=== PATIENT | female | born 1990 | race Caucasian/White ===

== ENCOUNTER 2016-10-28 23:29 | Emergency (ER) | payer BC, OTHER ==
[2016-10-28 23:36] VITALS: BP 138/47
[2016-10-29 00:49] LABS: Hematocrit 32 % (35-47); Hemoglobin 11.1 g/dl (12.0-16.0); Mean Corpuscular HGB Conc 34 g/dl (31-36); Mean Corpuscular Hemoglobin 27 pg (27-31); Mean Corpuscular Volume 80 fL (80-97); Mean Platelet Volume 8 um3 (7.4-10.4); Red Blood Count 4.06 10^6/ul (4.0-5.4); Red Cell Distribution Width 15 % (10.5-15); White Blood Count 10.1 10^3/ul (3.5-10.8)
[2016-10-29 00:58] LABS: Urine Bilirubin Negative (Negative); Urine Glucose Negative (Negative); Urine Nitrite Negative (Negative)
[2016-10-29 01:18] LABS: Albumin 3.7 g/dL (3.2-5.2); BUN/Creatinine Ratio 10.1 (8-20); Calcium 9.6 mg/dL (8.6-10.3); EGFR African American 134.4 (>60); EGFR Non-African American 104.5 (>60); Globulin 3.8 g/dL (2-4); Potassium 3.8 mmol/L (3.5-5.0); Total Bilirubin 0.2 mg/dL (0.2-1.0); Total Protein 7.5 g/dL (6.4-8.9)
--- NOTE | 2016-10-29 01:42 | ED ---
Laron Payne Matthew, scribed for Tommy Glynn on 10/29/16 at 0112 . Dizziness - HPI Summary HPI Summary: A 26 y/o 17 week female presents to the ED for dizziness since 22:00. Associated lightheadedness, weakness, and diaphoresis. She had a Hx of dizziness from hypertension. Denies vaginal bleeding, and abdominal pain. The patient states that she currently feels well. - History Of Current Complaint Chief Complaint: EDGeneral Stated Complaint: LOW BP/17 WKS PREG Time Seen by Provider: 10/29/16 00:02 Hx Obtained From: Patient Onset/Duration: Resolved Severity Initially: Moderate Severity Currently: Mild Character: Lightheaded, Dizzy Associated Signs And Symptoms: Positive: Diaphoresis, Other: - general weakness - Allergies/Home Medications Allergies/Adverse Reactions: Allergies Allergy/AdvReac Type Severity Reaction Status Date / Time No Known Allergies Allergy Verified 10/29/16 00:18 PMH/Surg Hx/FS Hx/Imm Hx Previously Healthy: Yes Endocrine/Hematology History: Denies: Hx Diabetes - Immunization History Date of Tetanus Vaccine: utd Date of Influenza Vaccine: none Infectious Disease History: No Infectious Disease History: Denies: Traveled Outside the [place] in Last 30 Days - Family History Known Family History: Positive: Cardiac Disease, Diabetes - Social History Alcohol Use: None Substance Use Type: Reports: None Smoking Status (MU): Light Every Day Tobacco Smoker Review of Systems Positive: Skin Diaphoresis Eyes: Negative ENT: Negative Cardiovascular: Negative Respiratory: Negative Gastrointestinal: Negative Negative: Abdominal Pain Genitourinary: Negative Musculoskeletal: Negative Skin: Negative Neurological: Other - Dizziness; lightheadedness Positive: Weakness - general Psychological: Normal All Other Systems Reviewed And Are Negative: Yes Physical Exam Triage Information Reviewed: Yes Vital Signs On Initial Exam: Initial Vitals Temp Pulse Resp BP Pulse Ox 97.3 F 56 16 138/47 98 10/28/16 23:33 10/28/16 23:33 10/28/16 23:33 10/28/16 23:33 10/28/16 23:33 Vital Signs Reviewed: Yes Appearance: Positive: Well-Appearing, No Pain Distress Skin: Positive: Warm, Skin Color Reflects Adequate Perfusion, Dry Head/Face: Positive: Normal Head/Face Inspection Eyes: Positive: EOMI, SARAH ENT: Positive: Normal ENT inspection Neck: Positive: Supple, Nontender Respiratory/Lung Sounds: Positive: Clear to Auscultation, Breath Sounds Present Cardiovascular: Positive: RRR, Pulses are Symmetrical in both Upper and Lower Extremities Abdomen Description: Positive: Nontender, Soft, Distended - mildly Musculoskeletal: Positive: Normal, Strength/ROM Intact Neurological: Positive: Normal, Sensory/Motor Intact, Alert, Oriented to Person Place, Time Psychiatric: Positive: Affect/Mood Appropriate Diagnostics - Vital Signs Vital Signs Temp Pulse Resp BP Pulse Ox 10/28/16 23:33 97.3 F 56 16 138/47 98 - Laboratory Result Diagrams: 10/29/16 00:35 10/29/16 00:35 Lab Statement: Any lab studies that have been ordered have been reviewed, and results considered in the medical decision making process. - Ultrasound No standard instances Ultrasound Interpretation: No Acute Changes - Single live intrauterine Gestational age 17 weeks 5 days heart rate 127 bpm Breech presentation Anterior placenta without previa Probable contraction anterior to placenta Ultrasound Interpretation Completed By: Radiologist Dizzy Course/Dx - Course Assessment/Plan: A 26 y/o 17 week female presents to the ED for dizziness since 22:00. Associated lightheadedness, weakness, and diaphoresis. Denies vaginal bleeding, and abdominal pain. The patient states that she currently feels well. US was negative for acute changes. The patient did well in the ED and will be discharged home with PCP follow-up. - Diagnoses Provider Diagnoses: Intrauterine , Weakness Discharge - Discharge Plan Condition: Stable Disposition: HOME Patient Education Materials: (ED) Forms: *Work Release Referrals: Umesh GRANADOSPTaylor [Primary Care Provider] - 3 Days Additional Instructions: Please follow-up with your primary care physician. The documentation as recorded by the Laron jimenez Matthew accurately reflects the service I personally performed and the decisions made by , Tommy Glynn.
--- NOTE | 2016-10-29 08:20 | RAD ---
Indication: , hypotension and abdominal pain. COMPARISON: There are no prior studies available for comparison. TECHNIQUE: Multiple real-time transabdominal images of the pelvis were obtained. FINDINGS: This exam demonstrates a single intrauterine in the breech presentation. cardiac activity and limb motion are noted. The heart rate was 127 beats per minute. The placenta was located anterior. There is no placenta previa. There appear to be a contraction anterior to the placenta during the study. The amniotic fluid volume appeared to be within normal limits. The cervix measured 3.6 cm in length. Biparietal diameter (cm): 3.84 17 weeks 5 days Head circumference (cm): 14.66 17 weeks 6 days Abdominal circumference (cm): 11.83 17 weeks 4 days Femur length (cm): 2.49 17 weeks 4 days The composite estimated gestational age was 17 weeks 5 days. The estimated date of delivery is April 03, 2017. The estimated weight at this time is 201 grams plus or minus 30 grams. The anatomy was not examined on this limited emergent study. IMPRESSION: THERE IS A SINGLE INTRAUTERINE IN THE BREECH PRESENTATION WITH A COMPOSITE ESTIMATED GESTATIONAL AGE OF 17 WEEKS 5 DAYS.
== END 2016-10-29 01:36 | disposition home or self-care (01) ==
LOC: ED 23:29
DX: R42 Dizziness and giddiness (principal); Z34.92 Encounter for supervision of normal pregnancy, unspecified, second trimester; R53.1 Weakness; F17.210 Nicotine dependence, cigarettes, uncomplicated
CPT/HCPCS: 36415; 76815; 80053; 81003; 84702; 85025; 86850; 86900; 86901; 99282

== ENCOUNTER 2019-05-24 20:07 | Emergency (ER) | payer BC, OTHER ==
[2019-05-24 20:30] VITALS: BP 123/78
[2019-05-24] MEDS ORDERED: Ketorolac *IM* INJ* 60 MG/2 ML VIAL IM ONE (20:53)
--- NOTE | 2019-05-24 21:00 | ED ---
Back Pain - HPI Summary HPI Summary: 28 yo WF c/o midback spasm radating to lower back x 2 weeks. tried hot and cold compresses, ibuprofen, flexeril but nothing's working, denies injuries - History of Current Complaint Chief Complaint: UCBackPain Stated Complaint: BACK PAIN Time Seen by Provider: 05/24/19 20:17 Hx Obtained From: Patient Hx Last Menstrual Period: 1 month ago Onset/Duration: Sudden Onset Onset/Duration: Started Weeks Ago - 2 Timing: Constant, Lasting Weeks Back Pain Location: Radiates To - lower back Severity Initially: Moderate Severity Currently: Severe Pain Intensity: 8 - Allergies/Home Medications Allergies/Adverse Reactions: Allergies Allergy/AdvReac Type Severity Reaction Status Date / Time No Known Allergies Allergy Verified 05/24/19 20:29 Home Medications: Home Medications Citalopram TAB* [Celexa TAB*] 1 tab PO DAILY 05/24/19 [History Confirmed ] PMH/Surg Hx/FS Hx/Imm Hx Previously Healthy: Yes Endocrine/Hematology History: Denies: Hx Diabetes - Surgical History Surgery Procedure, Year, and Place: c sections x2, dental extraction - Immunization History Date of Tetanus Vaccine: utd Date of Influenza Vaccine: none Infectious Disease History: No Infectious Disease History: Denies: Traveled Outside the [place] in Last 30 Days - Family History Known Family History: Positive: Cardiac Disease, Diabetes, Non-Contributory - Social History Alcohol Use: None Substance Use Type: Reports: None Smoking Status (MU): Current Some Day Smoker Type: Cigarettes Amount Used/How Often: <1/2 ppd Review of Systems Constitutional: Negative Eyes: Negative ENT: Negative Cardiovascular: Negative Respiratory: Negative Gastrointestinal: Negative Positive: Other - SEE HPI Skin: Negative All Other Systems Reviewed And Are Negative: No Physical Exam - Summary Physical Exam Summary: Vital Signs Reviewed: Yes Eye Exam: Normal Eyes: Positive: Conjunctiva Clear ENT: Positive: Normal ENT inspection Neck: Positive: Supple Respiratory Exam: Normal Respiratory: Positive: Lungs clear Cardiovascular Exam: Normal Cardiovascular: Positive: RRR, S1 S2 Abdomen: NT/ND Musculoskeletal Exam: Mid to low back paraspinal muscle tenderness, no vertebral tenderness Neurological Exam: Normal Psychological Exam: Normal Skin Exam: Normal Vital Signs On Initial Exam: Initial Vitals Temp Pulse Resp BP Pulse Ox 36.8 C 83 18 123/78 99 05/24/19 20:20 05/24/19 20:20 05/24/19 20:20 05/24/19 20:20 05/24/19 20:20 Diagnostics - Vital Signs Vital Signs Temp Pulse Resp BP Pulse Ox 05/24/19 20:20 36.8 C 83 18 123/78 99 - Laboratory Lab Statement: Any lab studies that have been ordered have been reviewed, and results considered in the medical decision making process. Back Pain Course/Dx - Diagnoses Provider Diagnoses: Spasm of back muscles Discharge ED - Sign-Out/Discharge Documenting (check all that apply): Patient Departure All imaging exams completed and their final reports reviewed: No Studies - Discharge Plan Condition: Stable Disposition: HOME Prescriptions: Naproxen [Naproxen 500 mg tab] 500 mg PO BID 10 Days #20 tablet Tizanidine HCl [Zanaflex] 4 mg PO BEDTIME PRN 5 Days #5 capsule PRN Reason: Pain - Severe Patient Education Materials: Muscle Spasm (ED) Referrals: Araceli Oscar [Primary Care Provider] - - Billing Disposition and Condition Condition: STABLE Disposition: Home
== END 2019-05-24 21:15 | disposition home or self-care (01) ==
LOC: UCEAST 20:07
DX: M62.838 Other muscle spasm (principal); F17.210 Nicotine dependence, cigarettes, uncomplicated
CPT/HCPCS: 96372; 99212; G0463; J1885

== ENCOUNTER 2019-07-13 23:16 | Day surgery (SDC) | payer OTHER ==
[2019-07-13] MEDS ORDERED: Ondansetron INJ* 2 MG/ML VIAL IV ONE (23:37)
[2019-07-13] MEDS ORDERED: Morphine 4 MG/ML VIAL (1 ml) 4 MG/ML VIAL IV ONE (23:37)
[2019-07-13] MEDS ORDERED: Ketorolac INJ* 30 MG/ML 1 ML VIAL IV PUSH ONE (23:37)
--- NOTE | 2019-07-13 23:40 | ED ---
Abdominal Pain/Female - HPI Summary HPI Summary: Pt is a 29 y/o F presenting to the ED with a chief complaint of abdominal pain initially onset at 1900 currently rated at 6-7/10. She states she ate dinner, fell asleep, then woke up with abruptly onset RUQ pain described as sharp and throbbing. It is intermittent in severity, and accompanied by nausea but no vomiting. She denies LE edema or myalgia. - History of Current Complaint Chief Complaint: EDNauseaVomitDiarrh Stated Complaint: ABD PAIN PER PT Time Seen by Provider: 07/13/19 23:33 Hx Obtained From: Patient Hx Last Menstrual Period: 1 month ago Onset/Duration: Sudden Onset, Lasting Hours, Still Present Timing: Hours Severity Initially: Moderate Severity Currently: Severe Pain Intensity: 7 Pain Scale Used: 0-10 Numeric Location: Discrete At: RUQ Radiates: No Aggravating Factor(s): Nothing Alleviating Factor(s): Nothing Associated Signs and Symptoms: Positive: Nausea. Negative: Vomiting Allergies/Adverse Reactions: Allergies Allergy/AdvReac Type Severity Reaction Status Date / Time No Known Allergies Allergy Verified 07/13/19 23:21 PMH/Surg Hx/FS Hx/Imm Hx Previously Healthy: Yes Endocrine/Hematology History: Denies: Hx Diabetes Cardiovascular History: Denies: Hx Hypertension - Surgical History Surgery Procedure, Year, and Place: c sections x2, dental extraction - Immunization History Date of Tetanus Vaccine: utd Date of Influenza Vaccine: none Infectious Disease History: No Infectious Disease History: Denies: Traveled Outside the [place] in Last 30 Days - Family History Known Family History: Positive: Cardiac Disease, Diabetes - Social History Alcohol Use: None Hx Substance Use: No Substance Use Type: Reports: None Hx Tobacco Use: Yes Smoking Status (MU): Current Some Day Smoker Type: Cigarettes Amount Used/How Often: <1/2 ppd Review of Systems Positive: Abdominal Pain, Nausea. Negative: Vomiting Negative: Myalgia - LE, Edema - LE All Other Systems Reviewed And Are Negative: Yes Physical Exam - Summary Physical Exam Summary: Appearance: Well-appearing, Well-nourished, lying in bed comfortably Skin: Warm, dry, no obvious rash Eyes: sclera anicteric, no conjunctival pallor ENT: mucous membranes moist, pharynx appears normal Neck: Supple, nontender Respiratory: Clear to auscultation, no signs of respiratory distress Cardiovascular: Normal S1, S2. No murmurs. Normal distal pulses in tibial and radial bilaterally. Abdomen: Soft, RUQ tenderness without guarding or rebound, normal active bowel sounds present Musculoskeletal: Normal, Strength/ROM Intact Neurological: A&Ox3, awake and alert, mentation is normal, speech is fluent and appropriate Psychiatric: affect is normal, does not appear anxious or depressed Triage Information Reviewed: Yes Vital Signs On Initial Exam: Initial Vitals Temp Pulse Resp BP Pulse Ox 97.4 F 65 16 137/80 99 07/13/19 23:18 07/13/19 23:18 07/13/19 23:18 07/13/19 23:18 07/13/19 23:18 Vital Signs Reviewed: Yes Procedures - Sedation Patient Received Moderate/Deep Sedation with Procedure: No Diagnostics - Vital Signs Vital Signs Temp Pulse Resp BP Pulse Ox 07/13/19 23:18 97.4 F 65 16 137/80 99 - Laboratory Result Diagrams: 07/13/19 23:54 07/13/19 23:54 Lab Statement: Any lab studies that have been ordered have been reviewed, and results considered in the medical decision making process. - Radiology CXR Radiology Interpretation Completed By: ED Physician Summary of Radiographic Findings: No acute process. Pending official radiology report. - Ultrasound Gallbladder US Ultrasound Interpretation Completed By: Radiologist Summary of Ultrasound Findings: Mildly distended gallbladder. Biliary sludge. Mild gallbladder wall thickening. Correlate clinically for evidence of acute cholecystitis. Steatosis. ED physician has reviewed this report. Re-Evaluation - Re-Evaluation 1st re-eval Re-Evaluation Time: 06:38 Change: Unchanged Comment: Pt still having pain. Abdominal Pain Fem Course/Dx - Course Course Of Treatment: Pt is a 29 y/o F presenting to the ED with a chief complaint of abdominal pain initially onset at 1900 currently rated at 6-7/10. She states she ate dinner, fell asleep, then woke up with abruptly onset RUQ pain described as sharp and throbbing. It is intermittent in severity, and accompanied by nausea but no vomiting. She denies LE edema or myalgia. Pt's physical exam reveals RUQ tenderness without guarding or rebound. Gallbladder US shows: Mildly distended gallbladder. Biliary sludge. Mild gallbladder wall thickening. Correlate clinically for evidence of acute cholecystitis. Steatosis. 0124 - I spoke with Dr. Diaz about the pt's US report who recommended trying to get the pt's pain down, and if it cannot be alleviated, then he will see her in the morning. CXR shows no acute process. Pending official radiology report. Pt still having pain as of 0638. I spoke with Dr. Diaz again at 0640 about the pt who will be coming in to evaluate the pt. Pt' s dx is cholecystitis. She will be signed out to Dr. Borja at 0700 on 07/14/19. - Diagnoses Provider Diagnoses: Cholecystitis Discharge ED - Sign-Out/Discharge Documenting (check all that apply): Sign-Out Patient Signing out patient TO: Arnol Borja - Discharge Plan Condition: Stable Disposition: ADMITTED TO [facility] - Billing Disposition and Condition Condition: STABLE Disposition: Admitted to [facility] - Attestation Statements Document Initiated by Kinzaibe: Yes Documenting Scribe: Allie Barber Provider For Whom Nasim is Documenting (Include Credential): Reed Guan MD. Scribe Attestation: I, Allie Barber, scribed for Reed Guan MD. on 07/14/19 at 1918. Scribe Documentation Reviewed: Yes Provider Attestation: The documentation as recorded by the Allie jimenez accurately reflects the service I personally performed and the decisions made by me, Reed Guan MD. Status of Scribe Document: Viewed Consult Consult: 0124 - I spoke with Dr. Diaz about the pt's US report who recommended trying to get the pt's pain down, and if it cannot be alleviated, then he will see her in the morning.
[2019-07-14 00:16] LABS: ALT 16 U/L (7-52); AST 15 U/L (13-39); Albumin 3.9 g/dL (3.2-5.2); Albumin/Globulin Ratio 1.1 (1-3); Alkaline Phosphatase 57 U/L (34-104); Anion Gap 6 mmol/L (2-11); BUN/Creatinine Ratio 10.5 (8-20); Blood Urea Nitrogen 8 mg/dL (6-24); CO2 Carbon Dioxide 23 mmol/L (22-32); Chloride 108 mmol/L (101-111); EGFR African American 110.5 (>60); EGFR Non-African American 91.3 (>60); Globulin 3.4 g/dL (2-4); Glucose 102 mg/dL (70-100); Potassium 3.7 mmol/L (3.5-5.0); Sodium 137 mmol/L (135-145); Total Protein 7.3 g/dL (6.4-8.9)
[2019-07-14 00:21] LABS: ABS Basophils 0.1 10^3/ul (0-0.2); ABS Eosinophils 0.4 10^3/ul (0-0.6); ABS Lymphocytes 2.7 10^3/ul (1.0-4.8); ABS Monocytes 0.8 10^3/ul (0-0.8); ABS Neutrophils 5.3 10^3/ul (1.5-7.7); Eosinophil % 4.2 %; Hematocrit 30 % (35-47); Hemoglobin 9.8 g/dL (12.0-16.0); Lymphocyte % 28.7 %; Mean Corpuscular HGB Conc 32 g/dL (31-36); Mean Corpuscular Hemoglobin 24 pg (27-31); Mean Corpuscular Volume 73 fL (80-97); Mean Platelet Volume 7.4 fL (7.4-10.4); Nucleated Red Blood Cells % 0.1; Platelet Count 403 10^3/uL (150-450); Red Blood Count 4.13 10^6 /uL (3.70-4.87); Red Cell Distribution Width 16 % (10-15); White Blood Count 9.3 10^3/uL (3.5-10.8)
[2019-07-14 00:22] LABS: HCG Pregnancy < 0.60 mIU/mL
[2019-07-14] MEDS ORDERED: Morphine 4 MG/ML VIAL (1 ml) 4 MG/ML VIAL IV ONE (01:23)
[2019-07-14] MEDS ORDERED: Piperacillin/Tazobac ADVAN(*) 3.375 GM in NS 0.9% 100 ML* 100 ML IVPB ONE (01:53)
[2019-07-14] MEDS: NS 0.9% 1000 ML** 2,000 ML IV ONE ×2 (02:01→03:33)
[2019-07-14 02:22] LABS: Urine Appearance Clear; Urine Bilirubin Negative (Negative); Urine Blood Negative (Negative); Urine Color Yellow; Urine Glucose Negative (Negative); Urine Ketones Negative (Negative); Urine Nitrite Negative (Negative); Urine Protein Negative (Negative); Urine Specific Gravity 1.013 (1.010-1.030); Urine Urobilinogen Negative (Negative)
[2019-07-14 02:27] LABS: Urine Bacteria Absent (Absent); Urine Red Blood Cell Trace(0-2/hpf) (Absent); Urine Squamous Epithelial Cell Present (Absent); Urine White Blood Cell Trace(0-5/hpf) (Absent)
[2019-07-14] MEDS: Morphine 4 MG/ML VIAL (1 ml) 4 MG/ML VIAL IV PRN ×2 (03:33→06:42)
--- NOTE | 2019-07-14 07:22 | ED ---
Progress - Progress Note Progress Note: The patient is a sign-out from Dr. Reed Guan MD, to Dr. Arnol Borja MD, at change of shift at 0700 on 07/14/19, pending consultation and evaluation with Dr. Diaz, surgery, and disposition. 0825 - Dr. Diaz has evaluated the patient and states that she will be admitted for surgery Re-Evaluation - Re-Evaluation 1st re-eval Re-Evaluation Time: 06:38 Change: Unchanged Comment: Pt still having pain. Course/Dx - Course Course Of Treatment: The patient is a sign-out from Dr. Reed Guan MD, to Dr. Arnol Borja MD, at change of shift at 0700 on 07/14/19, pending consultation and evaluation with Dr. Diaz, surgery, and disposition. Dr. Diaz belives that surgery will be most beneficial to the patient, so she will be admitted for surgery today. The patient understands and agrees with this plan. - Diagnoses Provider Diagnoses: Cholecystitis - Provider Notifications Discussed Care Of Patient With: Titi Diaz - surgery Time Discussed With Above Provider: 08:25 Instructed by Provider To: Admit As Inpatient - Dr. Diaz has evaluated the patient and has determined that she would benefit from surgery today, so she will be admitted. Discharge ED - Sign-Out/Discharge Documenting (check all that apply): Patient Departure - Patient admitted to surgery by Dr. Diaz., Receiving Sign-Out Receiving patient FROM: Reed Guan - Patient is a sign-out from Dr. Reed Guan MD, at change of shift at 0700 on 07/14/19, pending surgical consultation and disposition. - Discharge Plan Condition: Stable Disposition: ADMITTED TO [facility] - Billing Disposition and Condition Condition: STABLE Disposition: Admitted to [facility] - Attestation Statements Document Initiated by Scribe: Yes Documenting Scribe: Caitlin Kaplan Provider For Whom Nasim is Documenting (Include Credential): Dr. Arnol Borja MD Scribe Attestation: Caitlin Payne scribed for Dr. Arnol Borja MD on 07/14/19 at 0955. Scribe Documentation Reviewed: Yes Provider Attestation: The documentation as recorded by the Caitlin jimenez accurately reflects the service I personally performed and the decisions made by , Dr. Arnol Borja MD Status of Scribe Document: Viewed Procedures - Sedation Patient Received Moderate/Deep Sedation with Procedure: No
[2019-07-14] MEDS ORDERED: Lactated Ringers 1000 ML Bag* 1,000 ML IV SCH ×2 (09:00→11:00)
--- NOTE | 2019-07-14 09:10 | HP ---
HISTORY AND PHYSICAL: DATE OF CONSULTATION: 07/14/19 CHIEF COMPLAINT: Abdominal pain. HISTORY OF PRESENT ILLNESS: This pleasant 29-year-old female had sudden onset of severe epigastric and right upper quadrant pain last night sometime after dinner. Pain persisted, nothing made it better. She came to the emergency room. No fevers or chills. No jaundice, acholic stools or dark urine. Workup there included ultrasound, which showed sludge and a mildly thickened gallbladder. Laboratory studies showed a normal white blood cell count. Normal LFTs. Her pain persisted throughout the night. Pain relieved with narcotics temporarily. She was given IV antibiotics. PAST MEDICAL HISTORY: Depression. Denies history of cardiac, liver, kidney or lung disease. PAST SURGICAL HISTORY: section x2 and tubal ligation with last section. MEDICATIONS: Citalopram. ALLERGIES: No known drug allergies. FAMILY HISTORY: Denies history of colorectal or breast cancer. SOCIAL HISTORY: She is a smoker. REVIEW OF SYSTEMS: General: Denies weight loss or change of appetite. HEENT: No changes in vision, hearing or swallowing. No sore throat. Cardiac: No chest pain. Pulmonary: No cough. GI: No blood per rectum. : No hematuria. Skin: Denies rash. Neuro: No headache or dizziness. Musculoskeletal: No extremity weakness. Psych: No anxiety or depression. PHYSICAL EXAMINATION GENERAL: Pleasant female complaining of abdominal pain. HEENT: Her sclerae are anicteric. Oral mucosa is pink and moist. NECK: Supple. No JVD. No masses. LUNGS: Clear. HEART: Regular. ABDOMEN: Obese, soft, nondistended, tender in the epigastric and right upper quadrant. No masses or organomegaly. EXTREMITIES: No clubbing, cyanosis or edema. NEURO: Grossly intact. No focal motor or sensory deficits. BACK: No vertebral or CVA tenderness. SKIN: No rash, petechiae or jaundice. IMPRESSION: Cholecystitis. PLAN/RECOMMENDATIONS: We discussed surgery, risks including but not limited to bleeding, infection, injury to intraabdominal contents including the bowel, the bile duct, liver, cystic duct leak, no relief of symptoms. I told her that surgery would likely be with Dr. Deysi Atwood from [facility], who will meet her prior to surgery as well. She seemed to understand and has agreed to surgery, wishes to proceed, and all questions were answered. [id number]/[facility] #: [id number] MTDD
[2019-07-14] MEDS ORDERED: Cisatracurium* 2 MG/ML MDV 5 ML ONE (10:14)
[2019-07-14] MEDS ORDERED: Ondansetron INJ* 2 MG/ML VIAL ONE (10:14)
[2019-07-14] MEDS ORDERED: KETAMINE HCL* 50 MG/ML 10 ML VIAL ONE (10:14)
[2019-07-14] MEDS ORDERED: Propofol* 10 MG/ML 20 ML BTL ONE (10:14)
[2019-07-14] MEDS ORDERED: fentaNYL* 50 MCG/ML 2 ML VIAL (100 MCG VIAL) ONE ×2 (10:14→12:47)
[2019-07-14] MEDS ORDERED: Ketorolac INJ* 30 MG/ML 1 ML VIAL ONE (10:14)
[2019-07-14] MEDS ORDERED: Lidocaine 2% PF * 5 ML VIAL ONE (10:14)
[2019-07-14] MEDS ORDERED: Dexamethasone IV* 4 MG/ML 1 ML (4 MG) ONE (10:14)
[2019-07-14] MEDS ORDERED: Midazolam* 1 MG/ML 5 ML VIAL (5 MG) ONE (10:14)
[2019-07-14] MEDS ORDERED: Famotidine IV* 10 MG/ML 2 ML (20 mg) ONE (10:52)
[2019-07-14] MEDS ORDERED: Buffered Lidocaine 1% SYRIN* 1 ML/SYRINGE INTRADERM ONE (10:53)
[2019-07-14] MEDS ORDERED: Famotidine IV* 10 MG/ML 2 ML (20 mg) IV ONE (10:53)
[2019-07-14] MEDS ORDERED: ceFAZolin 2 GM in NS PREMIX(*) 2 GM/100 ML BAG IVPB ONE (10:56)
[2019-07-14] MEDS ORDERED: Bupivacaine 0.25% SDV* 30 ML ONE (11:16)
[2019-07-14] MEDS ORDERED: EPHEDrine (Pressors)* 50 MG/ML VIAL ONE (11:22)
[2019-07-14] MEDS ORDERED: fentaNYL* 50 MCG/ML 2 ML VIAL (100 MCG VIAL) IV PRN (12:37)
[2019-07-14] MEDS ORDERED: Ondansetron INJ* 2 MG/ML VIAL IV PRN (12:37)
[2019-07-14] MEDS ORDERED: Naloxone* 0.4 MG/ML 1 ML VIAL IV PRN (12:37)
[2019-07-14] MEDS ORDERED: Levalbuterol 0.63MG/3ML NEB* UNIT OF USE INH PRN (13:53)
[2019-07-14] MEDS ORDERED: Levalbuterol 0.63MG/3ML NEB* UNIT OF USE INH ONE (13:58)
[2019-07-14 15:34] VITALS: BP 123/68
--- NOTE | 2019-07-15 12:43 | OP ---
DATE OF OPERATION: 07/14/19 - SDS DATE OF : 89 SURGEON: Deysi Atwood MD ASSISTANTS: Dhruv Dennison MD and FRANCISCA Campuzano ANESTHESIA: General. PRE-OP DIAGNOSIS: Acute cholecystitis. POST-OP DIAGNOSIS: Acute cholecystitis. PROCEDURE: Laparoscopic cholecystectomy. ESTIMATED BLOOD LOSS: Minimal. FINDINGS: Inflamed gallbladder. INDICATION: Erin Narayanan is a 29-year-old otherwise healthy woman who presented to the ED with approximately 12 hours of abdominal pain. Her white count was normal, but ultrasound showed a mildly thickened gallbladder wall and sludge. I discussed surgery with her including but not limited to the risk of bleeding, infection, bowel injury, or bile duct injury. She is agreed to proceed with laparoscopic cholecystectomy. DESCRIPTION OF PROCEDURE: The patient was brought to the OR and placed in the supine position on the OR table. She received 2 g of cefazolin. SCDs were placed. General anesthesia was administered. The abdomen was prepped amd draped in the usual sterile fashion. A time-out confirming the patient's name, date of , and the procedure was called. A supraumbilical curvilinear incision was made. The incision was taken down to the fascia with blunt and sharp dissection. The fascia was elevated and incised sharply. The peritoneum was entered with blunt dissection. A 12 mm trocar was placed into the abdomen. Pneumoperitoneum to 15 mmHg was achieved. A 5 mm trocar was placed in the epigastrium at the midline, another 5 mm trocar was placed in the right upper quadrant, and a third 5 mm trocar was placed also in the right upper quadrant at the midclavicular line, all under direct visualization. The gallbladder was elevated. The gallbladder was very distended. A large gallstone was lodged in the neck of the gallbladder. While elevating the gallbladder, the wall did tear with leakage of clear bile tinged fluid. Once the gallbladder was elevated, the peritoneum overlying the gallbladder was taken down using electrocautery and blunt dissection. The cystic duct could be seen coming from the neck of the gallbladder. The peritoneum over the duct and artery was bluntly dissected away from the cystic duct and the cystic artery. The peritoneum attaching gallbladder to liver was taken down in order to obtain the critical view. The cystic duct was then clipped with 2 clips proximal and one clip distal, then divided sharply with scissors. The cystic artery was also divided after placing 2 clips distal and one clip proximal. The gallbladder was then taken off the liver bed with electrocautery. There was a significant amount of inflammation around the gallbladder with a thick gallbladder wall. The gallbladder was placed in a specimen bag and removed from the abdomen. Upon inspection of the liver, it looked like there was a small portion of the gallbladder wall still attached to liver. The small piece was amputated from the liver with electrocautery then removed from the abdomen. The gallbladder fossa was examined and hemostasis was achieved with electrocautery. The clips were examined and were in good position. The bile that had spilled was suctioned out and area was irrigated. The trocars were removed under visualization. Umbilical incision was closed with 0 Vicryl to reapproximate the fascia. The skin was closed with a running 4 -0 Monocryl. The 5 mm trocar sites were closed with interrupted 4-0 Monocryl sutures. The incisions were injected with 0.5% Marcaine. Steri-Strips were placed over the incision. Needle and sponge counts were correct. The patient was extubated and brought to recovery in stable condition. [id number]/[facility] #: [id number] ISHAN
== END 2019-07-14 08:38 | disposition home or self-care (01) ==
LOC: ED 23:16 → SDS 07-14 08:38
PROVIDERS: ATTEND Surgery
DX: K80.00 Calculus of gallbladder with acute cholecystitis without obstruction (principal); R10.11 Right upper quadrant pain; F17.210 Nicotine dependence, cigarettes, uncomplicated
CPT/HCPCS: 36415; 71046; 76705; 80053; 81003; 81015; 83690; 84702; 85025; 87086; 88304; 96374; 96375; 96376; 99284; J0690; J1100; J1885; J2250; J2270; J2405; J2543; J2704; J3010; J3490

== ENCOUNTER 2019-07-16 23:05 | Emergency (ER) | payer OTHER ==
[2019-07-16] MEDS ORDERED: NS 0.9% 1000 ML** 1,000 ML IV ONE (23:45)
[2019-07-16] MEDS ORDERED: Ketorolac INJ* 30 MG/ML 1 ML VIAL IV PUSH ONE (23:45)
[2019-07-17 00:14] LABS: ABS Basophils 0.1 10^3/ul (0-0.2); ABS Eosinophils 0.3 10^3/ul (0-0.6); ABS Lymphocytes 2.7 10^3/ul (1.0-4.8); ABS Monocytes 0.6 10^3/ul (0-0.8); ABS Neutrophils 5.5 10^3/ul (1.5-7.7); Eosinophil % 3.1 %; Hematocrit 31 % (35-47); Lymphocyte % 29.2 %; Mean Corpuscular HGB Conc 33 g/dL (31-36); Mean Corpuscular Hemoglobin 24 pg (27-31); Mean Corpuscular Volume 74 fL (80-97); Mean Platelet Volume 7.2 fL (7.4-10.4); Platelet Count 418 10^3/uL (150-450); Red Blood Count 4.12 10^6 /uL (3.70-4.87); Red Cell Distribution Width 16 % (10-15); White Blood Count 9.2 10^3/uL (3.5-10.8)
--- NOTE | 2019-07-17 00:18 | ED ---
GI/ HPI - HPI Summary HPI Summary: 29 year old female presents with abdominal pain worsening today. States she notice a rash today on lower abd. She states she's been having some numbness and her right arm feels heavy. She has had her gallbladder removed 2 days ago. She admits to nausea and vomiting. She has been having normal bowel movements. No urinary symptoms. has no medical conditions. surgery was done by dr craven. has had a decrease in appetite. no fevers. no chest pain or SOB. no cough. - History of Current Complaint Chief Complaint: EDGeneral Time Seen by Provider: 07/16/19 23:28 Stated Complaint: ABD PAIN PER PT Hx Last Menstrual Period: 1 month ago Pain Intensity: 4 - Allergy/Home Medications Allergies/Adverse Reactions: Allergies Allergy/AdvReac Type Severity Reaction Status Date / Time No Known Allergies Allergy Verified 07/16/19 23:14 PMH/Surg Hx/FS Hx/Imm Hx Endocrine/Hematology History: Denies: Hx Diabetes Cardiovascular History: Denies: Hx Hypertension - Surgical History Surgery Procedure, Year, and Place: c sections x2, dental extraction - Immunization History Date of Tetanus Vaccine: utd Date of Influenza Vaccine: none Infectious Disease History: No Infectious Disease History: Denies: Traveled Outside the [place] in Last 30 Days - Family History Known Family History: Positive: Cardiac Disease, Diabetes - Social History Alcohol Use: None Hx Substance Use: No Substance Use Type: Reports: None Hx Tobacco Use: Yes Smoking Status (MU): Heavy Every Day Tobacco Smoker Type: Cigarettes Amount Used/How Often: <1/2 ppd Review of Systems Negative: Fever Negative: Chest Pain Negative: Shortness Of Breath Positive: Abdominal Pain, Nausea. Negative: Vomiting, Diarrhea Positive: Rash All Other Systems Reviewed And Are Negative: Yes Physical Exam Triage Information Reviewed: Yes Vital Signs On Initial Exam: Initial Vitals Temp Pulse Resp BP Pulse Ox 96.8 F 97 18 141/79 98 07/16/19 23:14 07/16/19 23:14 07/16/19 23:14 07/16/19 23:14 07/16/19 23:14 Vital Signs Reviewed: Yes Appearance: Positive: Well-Appearing Skin: Positive: Warm, Dry, Other - incision clean dry, intact. erythema below umblicius Head/Face: Positive: Normal Head/Face Inspection Eyes: Positive: Normal, Conjunctiva Clear ENT: Positive: Pharynx normal Respiratory/Lung Sounds: Positive: Clear to Auscultation, Breath Sounds Present Cardiovascular: Positive: Normal, RRR Abdomen Description: Positive: Soft, Other: - diffuse abd pain Bowel Sounds: Positive: Present Musculoskeletal: Positive: Normal Neurological: Positive: Normal Psychiatric: Positive: Normal Procedures - Sedation Patient Received Moderate/Deep Sedation with Procedure: No Diagnostics - Vital Signs Vital Signs Temp Pulse Resp BP Pulse Ox 07/16/19 23:14 96.8 F 97 18 141/79 98 - Laboratory Lab Results: Lab Results 07/16/19 Range/Units 23:58 WBC 9.2 (3.5-10.8) 10^3/uL RBC 4.12 (3.70-4.87) 10^6 /uL Hgb 10.0 L (12.0-16.0) g/dL Hct 31 L (35-47) % MCV 74 L (80-97) fL MCH 24 L (27-31) pg MCHC 33 (31-36) g/dL RDW 16 H (10-15) % Plt Count 418 (150-450) 10^3/uL MPV 7.2 L (7.4-10.4) fL Neut % (Auto) 60.0 % Lymph % (Auto) 29.2 % Gregg % (Auto) 7.0 % Eos % (Auto) 3.1 % Baso % (Auto) 0.7 % Absolute Neuts (auto) 5.5 (1.5-7.7) 10^3/ul Absolute Lymphs (auto) 2.7 (1.0-4.8) 10^3/ul Absolute Monos (auto) 0.6 (0-0.8) 10^3/ul Absolute Eos (auto) 0.3 (0-0.6) 10^3/ul Absolute Basos (auto) 0.1 (0-0.2) 10^3/ul Absolute Nucleated RBC 0.0 10^3/ul Nucleated RBC % 0.0 Result Diagrams: 07/16/19 23:58 07/16/19 23:58 Lab Statement: Any lab studies that have been ordered have been reviewed, and results considered in the medical decision making process. GIGU Course/Dx - Course Course Of Treatment: 29 year old female presents with abdominal pain worsening today. States she notice a rash today on lower abd. She states she's been having some numbness and her right arm feels heavy. She has had her gallbladder removed 2 days ago. She admits to nausea and vomiting. She has been having normal bowel movements. No urinary symptoms. As no medical conditions. On exam incisions clean dry and intact. Has some erythema below belly button. The area is warm. wbc normal. patient will be signed out to dr franco pending CT. - Diagnoses Differential Diagnoses - Female: Other - cellulitis, abscess, post surgery pain Provider Diagnoses: Omphalitis in adult Discharge ED - Sign-Out/Discharge Documenting (check all that apply): Sign-Out Patient Signing out patient TO: Zoila Franco - Discharge Plan Condition: Stable Disposition: HOME Prescriptions: Amoxicillin/Clavulanate TAB* [Augmentin TAB 875*] 875 mg PO BID #20 tab Mupirocin 2% OINT* [Bactroban 2 % Oint*] 1 applic TOPICAL BID #1 tube Patient Education Materials: Abdominal Pain (ED) Referrals: Araceli Oscar [Primary Care Provider] - 3 Days Additional Instructions: PLEASE RETURN TO ED FOR ANY NEW OR WORSENING SYMPTOMS. PLEASE FOLLOW UP WITH YOUR PRIMARY CARE PHYSICIAN WITHIN THREE DAYS. - Billing Disposition and Condition Condition: STABLE Disposition: Home
[2019-07-17] MEDS ORDERED: Ondansetron INJ* 2 MG/ML VIAL IV ONE (00:30)
[2019-07-17 01:05] LABS: Albumin/Globulin Ratio 1.1 (1-3); C Reactive Protein 5.08 mg/L (<8.01); Calcium 9.4 mg/dL (8.6-10.3); EGFR African American 108.8 (>60); EGFR Non-African American 89.9 (>60); Globulin 3.6 g/dL (2-4); Total Bilirubin 0.2 mg/dL (0.2-1.0); Total Protein 7.6 g/dL (6.4-8.9)
[2019-07-17] MEDS ORDERED: Iohexol 300* (CONTRAST) 10 ML SDV IV ONE (01:14)
[2019-07-17 01:38] LABS: Urine Appearance Clear; Urine Bilirubin Negative (Negative); Urine Blood Negative (Negative); Urine Color Straw; Urine Glucose Negative (Negative); Urine Ketones Negative (Negative); Urine Nitrite Negative (Negative); Urine Protein Negative (Negative); Urine Specific Gravity 1.009 (1.010-1.030); Urine Urobilinogen Negative (Negative)
[2019-07-17] MEDS ORDERED: Amoxicillin/Clavulanate TAB* 875 MG PO ONE (03:02)
--- NOTE | 2019-07-17 03:07 | ED ---
Progress - Progress Note Progress Note: Patient is received as a sign-out from FRANCISCA Chowdary at 07/17/19 PA shift end pending CT ABD/PEL results. CT ABD/PEL IMPRESSION: 1. Findings of omphalitis. 2. Left ovarian cyst. No followup imaging indicated per ACR guidelines. THIS REPORT WAS REVIEWED BY DR. DAILEY. Results of CT abd/pel were discussed with the patient, she was discharged to home and will follow up with PCP. - EKG/XRAY/CT CT: see above Re-Evaluation - Re-Evaluation First Eval Re-Evaluation Time: 03:21 Comment: Results of CT abd/pel were discussed with the patient, she was discharged to home and will follow up with PCP. Course/Dx - Course Course Of Treatment: 29 y/o F sign out from FRANCISCA Chowdary at change of shift with recent gallbladder surgery, abdominal rash, abdominal pain. Workup demonstrates normal white count, no fever, no lactic. CT demonstrates omphalitis. Patient to be started on Augmentin and Bactroban. She will follow up with PCP and return to ED for any new or worsening symptoms. - Diagnoses Provider Diagnoses: Omphalitis in adult Discharge ED - Sign-Out/Discharge Documenting (check all that apply): Patient Departure - discharge - Discharge Plan Condition: Stable Disposition: HOME Prescriptions: Amoxicillin/Clavulanate TAB* [Augmentin TAB 875*] 875 mg PO BID #20 tab Mupirocin 2% OINT* [Bactroban 2 % Oint*] 1 applic TOPICAL BID #1 tube Patient Education Materials: Abdominal Pain (ED) Referrals: Araceli Oscar [Primary Care Provider] - 3 Days Additional Instructions: PLEASE RETURN TO ED FOR ANY NEW OR WORSENING SYMPTOMS. PLEASE FOLLOW UP WITH YOUR PRIMARY CARE PHYSICIAN WITHIN THREE DAYS. - Billing Disposition and Condition Condition: STABLE Disposition: Home - Attestation Statements Document Initiated by Scribe: Yes Documenting Scribe: KAYLAH VEGA Provider For Whom Nasim is Documenting (Include Credential): ELIEZER DAILEY MD Scribe Attestation: KAYLAH Payne, scribed for ELIEZER DAILEY MD on 07/17/19 at 0342. Scribe Documentation Reviewed: Yes Provider Attestation: The documentation as recorded by the KAYLAH jimenez accurately reflects the service I personally performed and the decisions made by me, ELIEZER DAILEY MD Status of Scribe Document: Viewed
[2019-07-17 03:29] VITALS: BP 148/80
== END 2019-07-17 03:30 | disposition home or self-care (01) ==
LOC: ED 23:05
DX: L08.82 Omphalitis not of newborn (principal); N83.202 Unspecified ovarian cyst, left side; F17.210 Nicotine dependence, cigarettes, uncomplicated
CPT/HCPCS: 36415; 74177; 80053; 81003; 83605; 83690; 85025; 86140; 87040; 96361; 96374; 96375; 99283; A9270-GY; J1885; J2405; Q9967

== ENCOUNTER 2019-08-25 18:33 | Emergency (ER) | payer OTHER ==
--- OUTSIDE RECORDS SUMMARY | 2019-08-25 18:43 | XMS REPORT | Continuity of Care Document ---
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 Problems Description No Information Available Social History Type Date Description Comments Sex Unknown ETOH Use Denies alcohol use Tobacco Use Start: Unknown Patient is a current smoker, smokes every day Smoking Status Reviewed: 08/17/19 Patient is a current smoker, smokes every day Exercise Type/Frequency Exercises regularly Allergies, Adverse Reactions, Alerts Description No Known Drug Allergies Medications Active Medications SIG Qnty Indications Ordering Provider Date Citalopram Hydrobromide 1 by mouth every Unknown day 10mg Tablets Immunizations Description No Information Available Vital Signs Date Vital Result Comment 08/17/2019 3:19pm Height 69 inches 5'9" Weight 220.00 lb Heart Rate 64 /min BP Systolic Sitting 118 mmHg BP Diastolic Sitting 70 mmHg Respiratory Rate 16 /min Body Temperature 97.8 F BMI (Body Mass Index) 32.5 kg/m2 Results Test Acquired Date Facility Test Result H/L Range Note Surgical 07/14/2019 [facility] Surgical SEE RESULT [address] Pathology BELOW [place] [id number] [phone] [place] SEE IMAGE 1 SEE RESULT BELOW Name: ELADIO NARAYANAN : [address]: Titi Diaz MD Acct: [id number] Unit: [id number] AGE: 29 Location: [facility] Re07/14/19 SEX: F Status: REG SDC SPEC: [id number] REMI: 07/14/19- [facility] DR: Deysi Atwood MD REQ: [id number] RECD: 07/14/19 STATUS: SOUT _ ORDERED: LEVEL 3 FINAL DIAGNOSIS Gallbladder, cholecystectomy: -- Chronic cholecystitis. -- Cholelithiasis. PRE-OPERATIVE DIAGNOSIS Cholecystitis GROSS DESCRIPTION The specimen is received in formalin labeled, Gallbladder and Contents, and consists of two manriquez-pink irregular, rubbery, focally cauterized soft tissue fragments aggregating 10.0 x 4.9 by up to 1.9 cm, consistent with a previously disrupted gallbladder. The serosa is smooth manriquez-red with a few fibromembranous adhesions and a small amount of cauterization. Impacted within the cystic duct, there is a 2.0 x 1.6 x 1.5 cm yellow ovoid granular cholelith. The mucosa is smooth to reticulated manriquez-pink and erythematous and the wall thickness measures up to 0.3 cm. Associate Publisher sections, one cassette. Signed by and Reported on: Amy Parks MD 07/15/19 1426 END OF REPORT DEPARTMENT OF PATHOLOGY, [address] [place] [address] Konstantin Rutherford M.D. Director [facility] # [id number] Procedures Description No Information Available Medical Devices Description No Information Available Encounters Description No Information Available Assessments Date Code Description Provider 08/17/2019 K80.10 Calculus of gallbladder with chronic cholecystitis Deysi Atwood MD without obstruction Plan of Treatment 08/17/2019 - Deysi Atwood MDK80.10 Calculus of gallbladder with chronic cholecystitis without obstructionFollow up:As neededInstructions:May return to normal duty at work. No activity or diet restrictions. Functional Status Description No Information Available Mental Status Description No Information Available Referrals Description No Information Available
[2019-08-25 19:53] LABS: ABS Basophils 0.1 10^3/ul (0-0.2); ABS Eosinophils 0.2 10^3/ul (0-0.6); ABS Lymphocytes 1.6 10^3/ul (1.0-4.8); ABS Monocytes 0.4 10^3/ul (0-0.8); ABS Neutrophils 4.7 10^3/ul (1.5-7.7); Eosinophil % 2.5 %; Hematocrit 29 % (35-47); Hemoglobin 9.8 g/dL (12.0-16.0); Lymphocyte % 22.8 %; Mean Corpuscular HGB Conc 34 g/dL (31-36); Mean Corpuscular Hemoglobin 24 pg (27-31); Mean Corpuscular Volume 71 fL (80-97); Mean Platelet Volume 6.9 fL (7.4-10.4); Platelet Count 410 10^3/uL (150-450); Red Cell Distribution Width 15 % (10-15); White Blood Count 6.9 10^3/uL (3.5-10.8)
[2019-08-25] MEDS ORDERED: Ondansetron INJ* 2 MG/ML VIAL IV ONE (19:53)
[2019-08-25] MEDS ORDERED: Morphine 4 MG/ML VIAL (1 ml) 4 MG/ML VIAL IV ONE (19:53)
[2019-08-25] MEDS ORDERED: NS 0.9% 1000 ML** 1,000 ML IV ONE (19:53)
--- NOTE | 2019-08-25 19:56 | ED ---
Abdominal Pain/Female - HPI Summary HPI Summary: The patient is a 29 y/o F presenting to [facility] with a chief complaint of nausea, vomiting, and abdominal pain onset five days ago which resolved but returned two days ago. She reports that she had the stomach bug initially with nausea, vomiting, and diarrhea, but those symptoms resolved over the next two days. However, the symptoms returned with the development of decreased appetite and diffuse abdominal pain which is worst in the RLQ. She describes the pain as a constant sharp, stabbing pain rated 5/10 in severity. She endorses intermittent fevers up to 101.2F. She denies any dysuria, hematuria, vaginal bleeding, or vaginal discharge. LNMP: now. She notes she had a cholecystectomy in 07/07. PMHx : 2 sections. Current smoker, no EtOH, no substance use. Medications reviewed. Allergies noted. - History of Current Complaint Chief Complaint: EDAbdPain Stated Complaint: ABD PAIN/CAN'T EAT PER PT Time Seen by Provider: 08/25/19 19:47 Hx Obtained From: Patient Hx Last Menstrual Period: 1 month ago Onset/Duration: Still Present, Other - began five days ago, resolved for two days, and then returned Timing: Constant Severity Initially: Moderate Severity Currently: Moderate Pain Intensity: 5 Pain Scale Used: 0-10 Numeric Location: Diffuse, Other - worst at RLQ Radiates: No Character: Sharp, Other: - stabbing Aggravating Factor(s): Food Alleviating Factor(s): Nothing Associated Signs and Symptoms: Positive: Fever - 101.2F, Decreased Appetite, Nausea, Vomiting, Diarrhea. Negative: Urinary Symptoms, Vaginal Bleeding, Vaginal Discharge Allergies/Adverse Reactions: Allergies Allergy/AdvReac Type Severity Reaction Status Date / Time No Known Allergies Allergy Verified 08/25/19 18:39 PMH/Surg Hx/FS Hx/Imm Hx Endocrine/Hematology History: Denies: Hx Diabetes Cardiovascular History: Denies: Hx Hypertension History: Denies: Hx Renal Disease - Surgical History Surgical History: Yes Surgery Procedure, Year, and Place: c sections x2, dental extraction, cholecystectomy - Immunization History Date of Tetanus Vaccine: utd Date of Influenza Vaccine: none Infectious Disease History: No Infectious Disease History: Denies: Traveled Outside the [place] in Last 30 Days - Family History Known Family History: Positive: Cardiac Disease, Diabetes - Social History Alcohol Use: None Hx Substance Use: No Substance Use Type: Reports: None Hx Tobacco Use: Yes Smoking Status (MU): Heavy Every Day Tobacco Smoker Type: Cigarettes Amount Used/How Often: <1/2 ppd Review of Systems Positive: Fever - 101.2F max Positive: Abdominal Pain - diffuse worst in RLQ, Vomiting, Diarrhea, Nausea, Other - decreased appetite Negative: dysuria, discharge, hematuria, other - vaginal bleeding All Other Systems Reviewed And Are Negative: Yes Physical Exam - Summary Physical Exam Summary: Constitutional: Well-developed, Well-nourished, Alert. (-) Distressed Skin: Warm, Dry HENT: Normocephalic; Atraumatic Eyes: Conjunctiva normal Neck: Musculoskeletal ROM normal neck. (-) JVD, (-) Stridor, (-) Tracheal deviation Cardio: Rhythm regular, rate normal, Heart sounds normal; Intact distal pulses; Radial pulses are 2+ and symmetric. (-) Murmur Pulmonary/Chest wall: Effort normal. (-) Respiratory distress, (-) Wheezes, (-) Rales Abd: Soft, (+) diffuse tenderness worst in the RLQ at McBurneys point, Positive Romberg test, Positive obturator sign (-) Distension, (-) Guarding, (- ) Rebound Musculoskeletal: (-) Edema Lymph: (-) Cervical adenopathy Neuro: Alert, Oriented x3 Psych: Mood and affect Normal Triage Information Reviewed: Yes Vital Signs On Initial Exam: Initial Vitals Temp Pulse Resp BP Pulse Ox 98.2 F 75 16 157/94 99 08/25/19 18:36 08/25/19 18:36 08/25/19 18:36 08/25/19 18:36 08/25/19 18:36 Vital Signs Reviewed: Yes Procedures - Sedation Patient Received Moderate/Deep Sedation with Procedure: No Diagnostics - Vital Signs Vital Signs Temp Pulse Resp BP Pulse Ox 08/25/19 18:36 98.2 F 75 16 157/94 99 - Laboratory Result Diagrams: 08/25/19 19:33 08/25/19 19:33 Lab Statement: Any lab studies that have been ordered have been reviewed, and results considered in the medical decision making process. Abdominal Pain Fem Course/Dx - Course Course Of Treatment: Patient is here with vomiting and diarrhea. Patient says tenderness at her right lower quadrant and McBurney's point. 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 Due to her physical exam, patient was you are referred for appendicitis. Patient alert performed which was grossly unremarkable. Patient was signed out to Dr. Rios pending CT scan results. - Diagnoses Provider Diagnoses: Gastroenteritis Discharge ED - Sign-Out/Discharge Documenting (check all that apply): Sign-Out Patient Signing out patient TO: Reed Guan - Patient is a sign-out to Dr. Reed Guan MD, at 2200 on 08/25/2019, pending Abd/Pel CT and disposition. - Discharge Plan Condition: Stable Disposition: HOME Prescriptions: Dicyclomine CAP* [Bentyl CAP*] 10 mg PO TID PRN #10 cap PRN Reason: Abd pain/cramping Prochlorperazine 10 mg TAB [Compazine 10 mg TAB] 10 mg PO Q6H PRN #14 tab PRN Reason: Nausea Patient Education Materials: Gastroenteritis (ED) Forms: *Work Release Referrals: Araceli Oscar [Primary Care Provider] - As Soon As Possible - Billing Disposition and Condition Condition: STABLE Disposition: Home - Attestation Statements Document Initiated by Kinzaibe: Yes Documenting Scribe: Caitlin Kaplan Provider For Whom Nasim is Documenting (Include Credential): Dr. Reed Vega MD Scribe Attestation: Caitlin Payne scribed for Dr. Reed Vega MD on 08/26/19 at 1643. Scribe Documentation Reviewed: Yes Provider Attestation: The documentation as recorded by the Caitlin jimenez accurately reflects the service I personally performed and the decisions made by me, Dr. Reed Vega MD Status of Scribe Document: Viewed
[2019-08-25 20:03] LABS: HCG Pregnancy < 0.60 mIU/mL
[2019-08-25 20:04] LABS: ALT 23 U/L (7-52); AST 18 U/L (13-39); Albumin 4.4 g/dL (3.2-5.2); Albumin/Globulin Ratio 1.5 (1-3); Alkaline Phosphatase 65 U/L (34-104); Anion Gap 7 mmol/L (2-11); BUN/Creatinine Ratio 17.7 (8-20); Blood Urea Nitrogen 14 mg/dL (6-24); CO2 Carbon Dioxide 26 mmol/L (22-32); Calcium 9.1 mg/dL (8.6-10.3); Chloride 107 mmol/L (101-111); EGFR African American 105.6 (>60); EGFR Non-African American 87.3 (>60); Glucose 92 mg/dL (70-100); Potassium 3.7 mmol/L (3.5-5.0); Sodium 140 mmol/L (135-145); Total Protein 7.4 g/dL (6.4-8.9)
[2019-08-25] MEDS ORDERED: Iohexol 300* (CONTRAST) 10 ML SDV IV ONE (20:10)
[2019-08-25] MEDS ORDERED: Ketorolac INJ* 30 MG/ML 1 ML VIAL IV PUSH ONE (22:09)
[2019-08-25 22:15] LABS: Urine Appearance Clear; Urine Bilirubin Negative (Negative); Urine Blood 2+ (Negative); Urine Color Straw; Urine Glucose Negative (Negative); Urine Ketones 1+ (Negative); Urine Nitrite Negative (Negative); Urine Protein Negative (Negative); Urine Urobilinogen Negative (Negative)
[2019-08-25 22:21] LABS: Urine Bacteria Absent (Absent); Urine Red Blood Cell Trace(0-2/hpf) (Absent); Urine White Blood Cell Absent (Absent)
[2019-08-25 22:28] VITALS: BP 139/72
--- NOTE | 2019-08-26 01:13 | ED ---
Progress - Progress Note Progress Note: Patient is received as a sign out from Dr. Vega to Dr. Guan at 2200 08/25/[address] ABD/PEL. CT abd/pel found the following: IMPRESSION: 1. 3.8 cm right adnexal cyst. 2. Normal appendix. 3. No other acute disease seen. As above. Patient was discharged to home with Bentyl and Compazine prescriptions, patient to follow up with PCP. Course/Dx - Course Course Of Treatment: Patient is received as a sign out from Dr. Vega to Dr. Guan at 2200 08/25/[address] ABD/PEL. CT abd/pel found the following: IMPRESSION: 1. 3.8 cm right adnexal cyst. 2. Normal appendix. 3. No other acute disease seen. As above. Patient was discharged to home with Bentyl and Compazine prescriptions, patient to follow up with PCP. - Diagnoses Provider Diagnoses: Gastroenteritis Discharge ED - Sign-Out/Discharge Documenting (check all that apply): Patient Departure - dc - Discharge Plan Condition: Stable Disposition: HOME Prescriptions: Dicyclomine CAP* [Bentyl CAP*] 10 mg PO TID PRN #10 cap PRN Reason: Abd pain/cramping Prochlorperazine 10 mg TAB [Compazine 10 mg TAB] 10 mg PO Q6H PRN #14 tab PRN Reason: Nausea Patient Education Materials: Gastroenteritis (ED) Forms: *Work Release Referrals: Araceli Oscar [Primary Care Provider] - As Soon As Possible - Billing Disposition and Condition Condition: STABLE Disposition: Home - Attestation Statements Document Initiated by Barbara: Yes Documenting Scribe: Louis Cuevas Provider For Whom Barbara is Documenting (Include Credential): Reed Guan MD Scribe Attestation: Louis Payne and Diego Cuevas, scribed for Reed Guan MD on at 1847. Scribe Documentation Reviewed: Yes Provider Attestation: The documentation as recorded by the barbara, Louis Cuevas accurately reflects the service I personally performed and the decisions made by me, Reed Guan MD Status of Scribe Document: Viewed
== END 2019-08-25 22:46 | disposition home or self-care (01) ==
LOC: ED 18:33
DX: K52.9 Noninfective gastroenteritis and colitis, unspecified (principal); R50.9 Fever, unspecified; F17.210 Nicotine dependence, cigarettes, uncomplicated
CPT/HCPCS: 36415; 74177; 80053; 81003; 81015; 83690; 84702; 85025; 96361; 96374; 96375; 99283; J1885; J2270; J2405; Q9967

== ENCOUNTER 2019-10-04 19:01 | Emergency (ER) | payer OTHER ==
[2019-10-04 19:49] VITALS: BP 124/74
[2019-10-04 20:02] LABS: Influenza A Molecular Negative (Negative); Influenza B Molecular Negative (Negative)
--- NOTE | 2019-10-04 20:18 | UC ---
Respiratory Complaint HPI - HPI Summary HPI Summary: 29 yo female with onset of nausea/fever/chills/goldberg and myalgias that started today vomited x 1 or diarrhea no abd pain no UTI symptoms no sore throat mild URI symptoms - History of Current Complaint Chief Complaint: UCRespiratory Stated Complaint: FEVER/CHILLS Time Seen by Provider: 10/04/19 20:07 Hx Obtained From: Patient Hx Last Menstrual Period: 1 month ago Onset/Duration: Gradual Onset Timing: Constant Severity Initially: Mild Severity Currently: Mild Pain Intensity: 3 Pain Scale Used: 0-10 Numeric Aggravating Factors: Nothing Alleviating Factors: Nothing Associated Signs And Symptoms: Positive: Fever, Chills. Negative: Pleuritic Chest Pain, Wheezing, Hemoptysis, Dizziness, Calf Pain, Calf Swelling, Edema, URI, Nasal Congestion, Hoarseness, Sinus Discomfort - Allergies/Home Medications Allergies/Adverse Reactions: Allergies Allergy/AdvReac Type Severity Reaction Status Date / Time No Known Allergies Allergy Verified 10/04/19 19:49 Home Medications: Home Medications Ibuprofen 800 mg PO DAILY 10/04/19 [History Confirmed 10/04/19] Iron 90 mg PO DAILY 10/04/19 [History Confirmed 10/04/19] PMH/Surg Hx/FS Hx/Imm Hx Previously Healthy: Yes - Surgical History Surgical History: Yes Surgery Procedure, Year, and Place: c sections x2, dental extraction, cholecystectomy - Family History Known Family History: Positive: Cardiac Disease, Diabetes - Social History Alcohol Use: Rare Substance Use Type: None Smoking Status (MU): Light Every Day Tobacco Smoker Type: Cigarettes Amount Used/How Often: <1/2 ppd Review of Systems All Other Systems Reviewed And Are Negative: Yes Constitutional: Positive: Fever, Chills Skin: Positive: Negative Eyes: Positive: Negative ENT: Positive: Nasal Discharge Cardiovascular: Positive: Negative Gastrointestinal: Positive: Vomiting - x 1, Nausea Genitourinary: Positive: Negative Motor: Positive: Negative Neurovascular: Positive: Negative Musculoskeletal: Positive: Negative Neurological/Mental Status: Positive: Negative Psychological: Positive: Negative Physical Exam Triage Information Reviewed: Yes Appearance: Well-Appearing, No Pain Distress, Well-Nourished Vital Signs: Initial Vital Signs Temp 98.2 F 10/04/19 19:46 Pulse 63 10/04/19 19:46 Resp 18 10/04/19 19:46 BP 124/74 10/04/19 19:46 Pulse Ox 99 10/04/19 19:46 Vital Signs Reviewed: Yes Eyes: Positive: Conjunctiva Clear ENT: Positive: Hearing grossly normal, Pharynx normal, TMs normal, Uvula midline. Negative: Nasal congestion, Nasal drainage, Tonsillar swelling, Tonsillar exudate, Trismus, Muffled voice, Hoarse voice, Dental tenderness, Sinus tenderness Neck: Positive: Supple, Nontender, No Lymphadenopathy Respiratory: Positive: Lungs clear, Normal breath sounds, No respiratory distress, No accessory muscle use Cardiovascular: Positive: RRR, No Murmur Abdomen Description: Positive: Nontender, No Organomegaly, Soft. Negative: CVA Tenderness (R), CVA Tenderness (L) Bowel Sounds: Positive: Present Musculoskeletal: Positive: ROM Intact, No Edema Neurological: Positive: Alert Psychological Exam: Normal Skin Exam: Normal Diagnostics - Laboratory Lab Results: influenza (-) Respiratory Course/Dx - Course Course Of Treatment: I suggested checking a urinalysis to r/o pyelo She decline as she just urinated and she does not want to wait here any longer - Differential Dx/Diagnosis Provider Diagnosis: Febrile illness, acute Discharge ED - Sign-Out/Discharge Documenting (check all that apply): Patient Departure All imaging exams completed and their final reports reviewed: No Studies - Discharge Plan Condition: Stable Disposition: HOME Patient Education Materials: Fever in Adults (ED) Forms: *Work Release Referrals: Araceli Oscar [Primary Care Provider] - 3 Days (if not better) Additional Instructions: your flu test was negative recheck for new or worsening symptoms or if not better in 3 days - Billing Disposition and Condition Condition: STABLE Disposition: Home
== END 2019-10-04 20:27 | disposition home or self-care (01) ==
LOC: UCCORT 19:01
DX: R50.9 Fever, unspecified (principal); R11.0 Nausea; M79.10 Myalgia, unspecified site; R11.10 Vomiting, unspecified; R19.7 Diarrhea, unspecified; R09.81 Nasal congestion; F17.210 Nicotine dependence, cigarettes, uncomplicated
CPT/HCPCS: 99211; G0463